=== PATIENT | female | born 1965 | race Two or more races ===

== ENCOUNTER 2019-09-02 19:40 | Inpatient (IN) | payer OTHER ==
[~2019-09-02] VITALS: Ht 157.5 cm; Wt 56.2 kg
[2019-09-02] MEDS ORDERED: FURO-152 PO (19:48)
[2019-09-02] MEDS ORDERED: SPIR50TA5 PO (19:49)
[2019-09-02] MEDS ORDERED: PANTOPRAZOLE SODIUM IV 80 MG in IV DEXTROSE 5% 100 ML IV ONE (20:00)
[2019-09-02] MEDS ORDERED: IV NORMAL SALINE 1000 ML BAG IV ONE (20:00)
[2019-09-02] MEDS ORDERED: ONDANSETRON 4 MG/2 ML VIAL IV ONE (20:00)
--- NOTE | 2019-09-02 20:06 | NUR ---
Patient transported to CT in stable condition.
--- NOTE | 2019-09-02 20:09 | NUR ---
Spoke to Xu from [facility], he will fax over information about the patient.
[2019-09-02 20:22] LABS: BASOPHILS # (AUTO) 0.1 K/uL (0.0-8.0); EOSINOPHILS # (AUTO) 0.1 K/uL (0.0-0.7); LYMPHOCYTES # (AUTO) 2.5 K/uL (20.0-40.0); MONOCYTES # (AUTO) 0.4 K/uL (2.0-10.0); WHITE BLOOD COUNT (AUTO) 7.1 K/uL (3.8-11.8)
[2019-09-02 20:23] LABS: BASOPHILS % (AUTO) 0.9 % (0.0-2.0); LYMPHOCYTES % (AUTO) 35.1 % (20.5-51.5); MEAN CORPUSCULAR HEMOGLOBIN 31.1 uug (24.7-32.8); MEAN CORPUSCULAR HGB CONC 33 g/dL (32.3-35.6); MEAN CORPUSCULAR VOLUME 93.2 fL (75.5-95.3); PLATELET COUNT (AUTO) 84 K/uL (179-408)
[2019-09-02 20:24] LABS: CREATININE 0.6 mg/dL (0.6-1.3); POTASSIUM 3.5 mmol/L (3.5-5.1)
[2019-09-02 20:28] LABS: HEMATOCRIT 19.7 % (31.2-41.9); HEMOGLOBIN 6.6 g/dL (10.9-14.3); RED BLOOD CELL COUNT(AUTO) 2.11 MIL/uL (3.63-4.92)
[2019-09-02 20:30] LABS: BILIRUBIN,DIRECT 1.1 mg/dL (0.0-0.2); BILIRUBIN,TOTAL 1.9 mg/dL (0.2-1.0); TOTAL PROTEIN, SERUM 5.7 g/dL (6.4-8.2)
--- NOTE | 2019-09-02 20:44 | NUR ---
[facility] will call back with physician.
[2019-09-02] MEDS ORDERED: PANTOPRAZOLE SODIUM 40 MG VIAL ONE ×4 (20:50→23:55)
[2019-09-02] MEDS ORDERED: ONDANSETRON 4 MG/2 ML VIAL ONE (20:50)
[2019-09-02] MEDS ORDERED: OCTREOTIDE ACETATE 50 MCG/1 ML ML ONE ×2 (20:58→23:13)
[2019-09-02] MEDS ORDERED: OCTREOTIDE ACETATE IV ONE (21:00)
[2019-09-02] MEDS ORDERED: NORMAL SALINE IV ONE (21:00)
--- NOTE | 2019-09-02 21:05 | NUR ---
Dr Pena spoke to Dr Bay GI consult.
--- NOTE | 2019-09-02 21:09 | NUR ---
Dr Glass into eval patient.
[2019-09-02 21:18] LABS: BAND % (MANUAL) 4 % (0-10); EOSINOPHILS % (MANUAL) 1 % (0-8); LYMPHOCYTES % (MANUAL) 37 % (20-40); MONOCYTES % (MANUAL) 5 % (2-10); NEUTROPHILS % (MANUAL) 53 % (42-75)
[2019-09-02] MEDS ORDERED: OCTREOTIDE ACETATE DRIP 1,250 MCG in IV NORMAL SALINE 247.5 ML IV PRN ×2 (21:45→23:45)
[2019-09-02] MEDS ORDERED: ACETAMINOPHEN 650 MG SUPP.RECT RC PRN (21:45)
[2019-09-02] MEDS ORDERED: LORAZEPAM 2 MG/1 ML VIAL IV PRN (21:45)
[2019-09-02] MEDS: FOLIC ACID 1 MG in IV DEXTROSE 5% 50 ML IV SCH (21:45)
[2019-09-02] MEDS ORDERED: THIAMINE HCL INJ 100 MG in IV DEXTROSE 5% 50 ML IV SCH (21:45)
[2019-09-02] MEDS ORDERED: EPINEPHRINE 1 MG/1 ML AMP ONE (21:49)
[2019-09-02] MEDS ORDERED: EPINEPHRINE 1:10,000 1 MG/10 ML DISP.SYRIN ONE (21:49)
--- NOTE | 2019-09-02 21:49 | NUR ---
Started 1st unit of PRBC transfusion at 9.
--- NOTE | 2019-09-02 22:00 | NUR ---
Gave SBAR report to Ana OR nurse. 1st unit continue to transfuse during transfer to OR. Patient tolerating blood transfusion at this time.
[2019-09-02] MEDS ORDERED: OCTREOTIDE ACETATE 500 MCG/1 ML VIAL ONE (23:12)
[2019-09-02] MEDS ORDERED: OCTREOTIDE ACETATE 100 MCG/1 MLVIAL ONE (23:12)
[2019-09-02 23:15] VITALS: BP 93/59
--- NOTE | 2019-09-02 23:15 | NUR ---
RECEIVED PATIENT FROM OR , AWAKE , ON HOUSE CLOTHES ,NOT HOSPITAL GOWN , BLOOD TRANSFUSION BAG WAS EMPTY AND HANGING , VS TAKEN , TACHYCARDIA OXYGEN ON 2 L , DENIES PAIN
[2019-09-02] MEDS ORDERED: OCTREOTIDE ACETATE DRIP 1,250 MCG in IV NORMAL SALINE 247.5 ML IV STA (23:27)
[2019-09-02] MEDS ORDERED: PANTOPRAZOLE SODIUM IV 80 MG in IV DEXTROSE 5% 500 ML IV SCH (23:45)
[2019-09-02] MEDS ORDERED: CEFTRIAXONE 1 G VIAL IM SCH (23:45)
[2019-09-03] VITALS (28 sets, daily range): BP systolic 93–125; BP diastolic 36–72
[2019-09-03] MEDS: IV D5/ 0.9% NACL 1,000 ML IV PRN (00:35)
[2019-09-03] MEDS ORDERED: THIAMINE HCL 200 MG/2 ML VIAL ONE (00:47)
[2019-09-03] MEDS ORDERED: FOLIC ACID 5 MG/ML VIAL IV ONE (01:04)
[2019-09-03] MEDS ORDERED: CEFTRIAXONE 1 G VIAL ONE (01:12)
[2019-09-03] MEDS: CEFTRIAXONE 1 G in IV DEXTROSE 5% 50 ML IV SCH (02:00)
--- NOTE | 2019-09-03 03:46 | NUR ---
BLADDER SCAN USED 176 ML SCANNED , BED DELATORRE OFFERED AGAIN
--- NOTE | 2019-09-03 03:49 | NUR ---
* Effects of ETOH abuse on body * Physical/Emotional dependancy * Altered thought process * Impact on life style Addendum: 09/03/19 at 0349 by JAVED ALVARENGA RN Amended: Links added.
--- NOTE | 2019-09-03 03:50 | NUR ---
* Understands anatomy and physiology * Describes reportable s/s * Understands treatment plan * Understands medication regime 1 UNIT OF PRBC GIVEN Addendum: 09/03/19 at 0351 by JAVED ALVARENGA RN Amended: Links added.
--- NOTE | 2019-09-03 03:50 | NUR ---
* Understands adequate fluid intake * Maintains vital signs WNL * Maintains optimal lab values * Evidences balanced intake and output * Maintains normal skin turgor Addendum: 09/03/19 at 0350 by JAVED ALVARENGA RN Amended: Links added.
[2019-09-03 05:03] LABS: MEAN CORPUSCULAR HGB CONC 33 g/dL (32.3-35.6); MONOCYTES # (AUTO) 0.4 K/uL (2.0-10.0); NEUTROPHILS # (AUTO) 4.9 K/uL (1.8-8.9); WHITE BLOOD COUNT (AUTO) 6.3 K/uL (3.8-11.8)
[2019-09-03 05:05] LABS: BASOPHILS % (AUTO) 0.4 % (0.0-2.0); LYMPHOCYTES % (AUTO) 15.5 % (20.5-51.5); MEAN CORPUSCULAR HEMOGLOBIN 30.8 uug (24.7-32.8); MEAN CORPUSCULAR VOLUME 92.7 fL (75.5-95.3); MONOCYTES % (AUTO) 6.5 % (0.0-11.0); NEUTROPHILS % (AUTO) 77.6 % (38.5-71.5); PLATELET COUNT (AUTO) 60 K/uL (179-408)
[2019-09-03 05:10] LABS: CREATININE 0.5 mg/dL (0.6-1.3); MAGNESIUM 1.3 mg/dL (1.8-2.4); PHOSPHOROUS 4.2 mg/dL (2.5-4.9); POTASSIUM 4.3 mmol/L (3.5-5.1); TOTAL PROTEIN, SERUM 4.5 g/dL (6.4-8.2)
[2019-09-03] MEDS: MORPHINE SULFATE 2 MG/1 ML DISP.SYRIN IV PRN ×3 (05:23→23:06)
[2019-09-03 06:16] LABS: HEMOGLOBIN 5.7 g/dL (10.9-14.3); RED BLOOD CELL COUNT(AUTO) 1.87 MIL/uL (3.63-4.92)
[2019-09-03 06:17] LABS: HEMATOCRIT 17.3 % (31.2-41.9)
--- NOTE | 2019-09-03 06:20 | NUR ---
DR ALVAREZ WAS CALLED AND RECEIVED ORDERS , SEE NOTES PLS
[2019-09-03] MEDS ORDERED: PANTOPRAZOLE SODIUM IV 80 MG in IV DEXTROSE 5% 500 ML IV SCH ×4 (07:15)
--- NOTE | 2019-09-03 07:39 | NUR ---
dr vora was called to clarify order per pharmacy regarding protonix and sandostastin, no orders received
[2019-09-03] MEDS ORDERED: MVI-12 10 ML IV SCH ×2 (09:00)
[2019-09-03] MEDS ORDERED: PANTOPRAZOLE SODIUM IV 40 MG in IV DEXTROSE 5% 100 ML IV SCH (09:00)
[2019-09-03] MEDS ORDERED: MVI ADULT 10 ML VIAL=1 AMP 10 ML in IV D5/ 0.9% NACL 1,000 ML IV ONE ×2 (10:15→18:00)
[2019-09-03] MEDS: PANTOPRAZOLE SODIUM 40 MG VIAL IV SCH ×2 (10:17→20:43)
[2019-09-03] MEDS: MAGNESIUM SULFATE/D5W 100 ML IV SCH ×4 (10:18→14:23)
--- NOTE | 2019-09-03 11:45 | NUR ---
A call from GI physician Dr. Barry Bay telephone report given and orders to keep pt. NPO. until new orders. received.
--- NOTE | 2019-09-03 11:50 | NUR ---
Cardiology services, Estrellita Pablo. in the unit to see and examine patient, full report given. Orders to continue current care plan received.
[2019-09-03] MEDS ORDERED: THIAMINE HCL INJ 100 MG in IV DEXTROSE 5% 50 ML IV SCH (12:15)
--- NOTE | 2019-09-03 15:19 | NUR ---
Attending physician Hank Rockwell in the unit to see and examine patient, full report given, orders to continue with care plan receive.
--- NOTE | 2019-09-03 18:56 | NUR ---
A call from [facility] at . report requested, and given via phone. No transfer to at this time as stated. They will follow up.
[2019-09-03] MEDS: FOLIC ACID 1 MG in IV DEXTROSE 5% 50 ML IV SCH (21:31)
--- NOTE | 2019-09-03 22:00 | NUR ---
PATIENT WAS ASSISTED IN THE COMMODE , NO BLOOD IN THE STOOL OR URINE
[2019-09-03] MEDS ORDERED: CEFTRIAXONE 1 G VIAL IV SCH (23:45)
[2019-09-04] VITALS (19 sets, daily range): BP systolic 103–131; BP diastolic 51–82
[2019-09-04] MEDS ORDERED: THIAMINE HCL INJ 100 MG in IV DEXTROSE 5% 50 ML IV SCH ×2
--- NOTE | 2019-09-04 | NUR ---
ASSISTED TO THE COMMODE NO BLOOD IN THE STOOL OR IN THE URINE
[2019-09-04] MEDS: CEFTRIAXONE 1 G in IV DEXTROSE 5% 50 ML IV SCH (01:33)
--- NOTE | 2019-09-04 02:37 | NUR ---
Understands anatomy and physiology * Describes reportable s/s * Understands treatment plan * Understands medication regime Addendum: 09/04/19 at 0237 by JAVED ALVARENGA RN Amended: Links added.
--- NOTE | 2019-09-04 02:37 | NUR ---
Exhibits no redness over bony prominences * Exhibits no reddened or excoriated areas Addendum: 09/04/19 at 0238 by JAVED ALVARENGA RN Amended: Links added.
[2019-09-04 05:10] LABS: BASOPHILS % (AUTO) 0.5 % (0.0-2.0); EOSINOPHILS # (AUTO) 0.1 K/uL (0.0-0.7); EOSINOPHILS % (AUTO) 2.1 % (0.0-7.0); HEMATOCRIT 22.6 % (31.2-41.9); HEMOGLOBIN 7.7 g/dL (10.9-14.3); LYMPHOCYTES # (AUTO) 1.1 K/uL (20.0-40.0); LYMPHOCYTES % (AUTO) 22.4 % (20.5-51.5); MEAN CORPUSCULAR HEMOGLOBIN 30.5 uug (24.7-32.8); MEAN CORPUSCULAR HGB CONC 34 g/dL (32.3-35.6); MEAN CORPUSCULAR VOLUME 89.8 fL (75.5-95.3); MONOCYTES # (AUTO) 0.4 K/uL (2.0-10.0); MONOCYTES % (AUTO) 7.4 % (0.0-11.0); NEUTROPHILS # (AUTO) 3.5 K/uL (1.8-8.9); NEUTROPHILS % (AUTO) 67.6 % (38.5-71.5); PLATELET COUNT (AUTO) 56 K/uL (179-408); RED BLOOD CELL COUNT(AUTO) 2.52 MIL/uL (3.63-4.92); WHITE BLOOD COUNT (AUTO) 5.1 K/uL (3.8-11.8)
[2019-09-04 05:25] LABS: BILIRUBIN,TOTAL 2.5 mg/dL (0.2-1.0); CREATININE 0.5 mg/dL (0.6-1.3); PHOSPHOROUS 2.5 mg/dL (2.5-4.9); POTASSIUM 3.7 mmol/L (3.5-5.1); TOTAL PROTEIN, SERUM 5.2 g/dL (6.4-8.2)
--- NOTE | 2019-09-04 05:37 | NUR ---
patient is calm , denies distress
[2019-09-04 05:53] LABS: BAND % (MANUAL) 1 % (0-10); LYMPHOCYTES % (MANUAL) 8 % (20-40); MONOCYTES % (MANUAL) 1 % (2-10); NEUTROPHILS % (MANUAL) 90 % (42-75)
--- NOTE | 2019-09-04 06:26 | NUR ---
called the [employer] exchange number , no one is answering
--- NOTE | 2019-09-04 06:39 | NUR ---
dr wolf was informed of latest lab work this work , received order to to a transfuse one more unit of blood prbc
[2019-09-04] MEDS ORDERED: OCTREOTIDE ACETATE DRIP 1,250 MCG in IV NORMAL SALINE 247.5 ML IV PRN (07:45)
[2019-09-04] MEDS: PANTOPRAZOLE SODIUM 40 MG VIAL IV SCH (07:47)
[2019-09-04] MEDS: IV D5/ 0.9% NACL 1,000 ML IV PRN (09:53)
--- NOTE | 2019-09-04 10:12 | NUR ---
1 unit of PRBC started. Instructed and educated pt to notify me of any adverse blood transfusion reactions. Will closely monitor during first 15min for any reactions.
--- NOTE | 2019-09-04 10:25 | NUR ---
Pt tolerating blood transfusion well and no adverse reactions noted or reported from the pt.
[2019-09-04 12:29] LABS: HEPATITIS B SURFACE AB Non Reactive (.)
--- NOTE | 2019-09-04 12:45 | NUR ---
1 unit of PRBC completed. Pt tolerated blood transfusion well and no adverse reactions noted or reported from the pt.
--- NOTE | 2019-09-04 14:34 | NUR ---
Full SBAR report given to RENE Townsend. Pt transferred to 3rd floor telemetry. Discharge instructions provided and discussed with the pt. All belongings reviewed and brought with the pt. Pt verbalized understanding of discharge instructions and plan of care.
--- NOTE | 2019-09-04 16:20 | NUR ---
DISCHARGED TO [facility] VIA AMBULANCE STABLE, NO SS OF PAIN OR DISTRESS. REPORT GIVEN TO RENE MURILLO AT [facility] RM [id number]. AROUND, INSTRUCTION GIVEN
[2019-09-04] MEDS ORDERED: PHENYLEPHRINE 10 MG/1 ML VIAL IV ONE (17:14)
[2019-09-04] MEDS ORDERED: IV LACTATED RINGERS SOLUTION 1,000 ML BAG IV ONE (17:14)
[2019-09-04] MEDS ORDERED: METOCLOPRAMIDE HCL 10 MG/2 ML VIAL IV ONE (17:14)
[2019-09-04] MEDS ORDERED: PROPOFOL 200 MG/20 ML BOTTLE IV ONE (17:14)
[2019-09-04] MEDS ORDERED: LIDOCAINE-MPF 2% 5 ML VIAL IJ ONE (17:14)
[2019-09-04] MEDS ORDERED: EPHEDRINE SULFATE 50 MG/ML AMPUL IM ONE (17:14)
== END 2019-09-04 17:15 | disposition short-term general hospital (02) | DRG 368 ==
LOC: ER 19:43 → CCU 21:32 → TELE3 09-04 14:51
PROVIDERS: ADMIT Internal Medicine; ATTEND Internal Medicine
PROC: 06L38CZ Occlusion of Esophageal Vein with Extraluminal Device, Via Natural or Artificial Opening Endoscopic (ICD-10-PCS; principal; 2019-09-02)
PROC: 0W3P8ZZ Control Bleeding in Gastrointestinal Tract, Via Natural or Artificial Opening Endoscopic (ICD-10-PCS; principal; 2019-09-02)
PROC: 30233N1 Transfusion of Nonautologous Red Blood Cells into Peripheral Vein, Percutaneous Approach (ICD-10-PCS; principal; 2019-09-02)
DX: K22.6 Gastro-esophageal laceration-hemorrhage syndrome (principal); I21.A1 Myocardial infarction type 2; E43 Unspecified severe protein-calorie malnutrition; F10.239 Alcohol dependence with withdrawal, unspecified; D62 Acute posthemorrhagic anemia; Y90.9 Presence of alcohol in blood, level not specified; K70.30 Alcoholic cirrhosis of liver without ascites; R01.1 Cardiac murmur, unspecified; E83.42 Hypomagnesemia; I85.10 Secondary esophageal varices without bleeding; R00.0 Tachycardia, unspecified; D69.6 Thrombocytopenia, unspecified; Z79.899 Other long term (current) drug therapy
CPT/HCPCS: 36415; 70030-TC; 70450; 71045; 83735; 84100; 85025; 85730; 86705; 86706; 86803; 86850; 86900; 86901; 86920; 93005; A4217; A4663; C9113; G0378; J0171; J0696; J2270; J2354; J2370; J2405; J2765; J3411; J3475; J3490; J7030; J7042; J7050; J7060; J7120; P9016-BL; P9021